=== PATIENT | female | born 1960 | race Caucasian/White ===

== ENCOUNTER → 2017-03-13 | Outpatient (CLI) | payer OTHER ==
--- NOTE | ~2017-03-13 | CT138 ---
[facility] A Service of [facility] RADIOLOGY TEXT RESULTS PATIENT: RACH PLUMMER LOCATION: [place] : 60 UNIT #: [id number] AGE: [address]: Nicole San MD SEX: F ORDER DR: [id number] [address] [address] [id number] O MR#: [id number] Acc #: [id number] NAME: RACH PLUMMER : 1960 SEX: F STUDY DATE/TIME: 03/13/2017 14:33 UNIT: [facility] ROOM: STUDY DESCRIPTION: CT Lung screening initial Attending Physician: Nicole San M.D. Referring Physician: Nicole San M.D. Ordering Physician: Nicole San M.D. Primary Care Physician: Nicole San M.D. MEDICAL IMAGING REPORT This report is preliminary unless electronic signature is present. EXAM CT lung cancer screening. INDICATIONS Lung cancer screening. 40 pack year smoking history. PROCEDURE Unenhanced low-dose CT of the chest performed per lung cancer screening protocol, CTDI 2.96 mGy. Total DLP 125 mGy-cm. This CT exam was performed with one or more of the following radiation dose reduction techniques: automatic exposure control, adjustment of mA and/or kV according to patient size, and iterative reconstruction. COMPARISON None. FINDINGS Moderate upper lobe centrilobular emphysema. 4 mm nodule in the left upper lobe. Scattered areas of linear scarring. No adenopathy. Heavy coronary artery calcification. No acute findings in the included upper abdomen. Right renal atrophy compared with the left. No aggressive appearing bone lesion. IMPRESSION 1. Emphysema. 2. 4 mm noncalcified nodule left upper lobe. 3. Parenchymal scarring. 4. Coronary artery calcification. 5. LungRADS category II, benign findings. Per the ACR LungRADS recommendation suggest patient continue with annual low-dose lung cancer screening. [facility] A Service [facility] RADIOLOGY TEXT RESULTS PATIENT: RACH PLUMMER LOCATION: [place] : 60 UNIT #: [id number] AGE: [address]: Nicole San MD SEX: F ORDER DR: Dictated by... Raymond Madsen M.D. THIS IS AN ELECTRONICALLY VERIFIED REPORT Raymond Madsen M.D. at 03/14/2017 10:46 AM JEET/anisha TD: 03/13/2017 17:37 JOB #: [id number] MEDICAL IMAGING REPORT Page 1 of 1
== END | disposition home or self-care (01) ==
LOC: SCT 14:20
DX: F17.210 Nicotine dependence, cigarettes, uncomplicated (principal); J43.9 Emphysema, unspecified; R91.1 Solitary pulmonary nodule; I25.10 Atherosclerotic heart disease of native coronary artery without angina pectoris; J98.4 Other disorders of lung
CPT/HCPCS: G0297